=== PATIENT | male | born 1960 | race Caucasian/White ===

== ENCOUNTER → 2017-12-05 | Outpatient (CLI) | payer MEDICARE ==
--- NOTE | 2017-12-05 12:21 | RADIOLOGY REPORT (SQ) ---
EXAM DESCRIPTION: MRI CERVICAL SPINE WITHOUT COMPLETED DATE/TIME: 12/05/2017 9:23 am REASON FOR STUDY: CERVICALGIA (M54.2) M96.1 POSTLAMINECTOMY SYNDROME, NOT ELSEWHERE CLASSIFIED M54. 2 CERVICALGIA COMPARISON: None. TECHNIQUE: Sagittal and Axial imaging includes T1, T2, STIR and gradient echo sequences. LIMITATIONS: Motion. FINDINGS: ALIGNMENT: Reversal of the lordotic curve. Grade 1 anterolisthesis C4 relative to C3, C5 relative to C4. VERTEBRAE: Intact. BONE MARROW: Normal. No marrow replacement or reactive changes. DISCS: Desiccation multiple levels. HARDWARE: None in the spine. CORD AND BASE OF BRAIN: Normal in size and signal intensity. SOFT TISSUES: No soft tissue masses. C1-C2: No significant spinal stenosis. C2-C3: No significant spinal stenosis or exit foraminal stenosis. C3-C4: Mild -moderate spinal stenosis due disc osteophyte complex and malalignment. Severe neural fo raminal narrowing bilaterally. C4-C5: Mild spinal stenosis due to disc osteophyte complex and malalignment. Moderate neural foramin al narrowing bilaterally. C5-C6: No significant spinal stenosis or exit foraminal stenosis. C6-C7: No significant spinal stenosis or exit foraminal stenosis. C7-T1: No significant spinal stenosis or exit foraminal stenosis. UPPER THORACIC: Incompletely imaged. No significant spinal stenosis or exit foraminal stenosis. OTHER: No other significant finding. IMPRESSION: Mild-moderate spinal stenosis C3-4. Mild spinal stenosis C4-5. TECHNICAL DOCUMENTATION: JOB ID: [id number] [employer]- All Rights Reserved Reading location - IP/workstation name: [email or web address]
--- NOTE | 2017-12-05 13:21 | RADIOLOGY REPORT (SQ) ---
EXAM DESCRIPTION: MRI LUMBAR SPINE COMBO COMPLETED DATE/TIME: 12/05/2017 9:23 am REASON FOR STUDY: POSTLAMINECTOMY SYNDROME, NEC (M96.1), RADICULOPATHY, LUMBOSACRAL REGION (M M96.1 POSTLAMINECTOMY SYNDROME, NOT ELSEWHERE CLASSIFIED M54.2 CERVICALGIA COMPARISON: None. TECHNIQUE: Sagittal and Axial imaging includes T1, T1 post gadolinium, T2, STIR and gradient echo se quences. Coronal T2/HASTE imaging. CONTRAST TYPE AND DOSE: 15 mL Prohance. RENAL FUNCTION: GFR > 60. LIMITATIONS: Motion. FINDINGS: VISUALIZED UPPER ABDOMEN: Limited evaluation. No acute or suspicious findings suggested. SEGMENTATION: No transitional anatomy. The lowest well-developed disc space is labeled L5-S1. ALIGNMENT: Anatomic. VERTEBRAE: Intact. No fractures. BONE MARROW: Normal. No marrow replacement or reactive changes. DISC SIGNAL: Desiccation multiple levels. POSTERIOR ELEMENTS: See individual levels below. HARDWARE: Disc spacer L4-5. CORD AND CONUS: Normal in size and signal intensity. Conus at the appropriate level. SOFT TISSUES: No aortic aneurysm seen. No bulky retroperitoneal adenopathy or mass. No paraspinal mas s or fluid. L1-L2: No significant stenosis. L2-L3: Moderate spinal stenosis due to disc osteophyte complex. Lateral recess stenosis. Mild neura l foraminal narrowing bilaterally. L3-L4: Mild -moderate spinal stenosis due to disc osteophyte complex. Mild neural foraminal narrowin g bilaterally. L4-L5: Old right laminectomy. No significant spinal stenosis. L5-S1: Left paracentral annular fissure. No significant stenosis. Facet arthropathy. LOWER THORACIC: Incompletely imaged. No stenosis seen. SACRUM: Visualized upper sacrum intact. ENHANCEMENT: No abnormal enhancement. OTHER: No other significant findings. IMPRESSION: Spinal stenosis L2-3 and L3-4. TECHNICAL DOCUMENTATION: JOB ID: [id number] [employer]- All Rights Reserved Reading location - IP/workstation name: [email or web address]
== END ==
LOC: RAD 08:15
PROVIDERS: ATTEND Physician Assistant
DX: M96.1 Postlaminectomy syndrome, not elsewhere classified (principal); M54.2 Cervicalgia; M54.17 Radiculopathy, lumbosacral region; M48.061 Spinal stenosis, lumbar region without neurogenic claudication; M48.02 Spinal stenosis, cervical region
CPT/HCPCS: 82565; 72158; 72141; A9576

== ENCOUNTER 2018-11-22 09:28 | Day surgery (SDC) | payer MEDICARE, MEDICAID ==
[~2018-11-22 09:28] MED LIST: DIPHENHYDRAMINE HCL 50 MG/ML VIAL ONE; EPINEPHRINE INJ 1 MG/10 ML DISP.SYRIN ONE; FENTANYL CITRATE INJ/PF 100 MCG/2 ML AMPUL ONE; FLUMAZENIL INJ 0.5 MG/5 ML VIAL ONE; GLUCAGON,HUMAN RECOMB 1 MG INJ ONE; NALOXONE HCL INJ/PF 0.4 MG/1 ML SDV ONE; ONDANSETRON HCL INJ/PF 4 MG/2 ML SDV ONE
[2018-11-22] MEDS ORDERED: RINGERS SOLUTION,LACTATED 1,000 ML IV PRN (09:30)
[2018-11-22] MEDS ORDERED: ACETAMINOPHEN 325 MG TABLET PO PRN (09:31)
[2018-11-22] MEDS ORDERED: NA PHOS,M-B/NA PHOS,DI-BA (ADULT) 133 ML ENEMA PR ONE ×3 (09:37→10:00)
[2018-11-22] MEDS: MIDAZOLAM 2 MG/2 ML INJ ONE ×4 (10:13→10:37)
--- NOTE | 2018-11-22 11:33 | Operative Report ---
Operative Report DATE OF SURGERY: 11/22/18 PREOPERATIVE DIAGNOSIS: 1. Abdominal pain. 2. History of gastroesophageal re flux disease. 3. History of tubular adenoma descending colon POSTOPERATIVE DIAGNOSIS: Same. 1. Diffuse moderate gastritis. 2. Hiatal hernia. 3. Distal esophagitis with evolving stricture. 4. Mild duodenitis. 5. Multiple colonic polyps OPERATION: 1. Esophagogastroduodenoscopy. 2. Cold forceps biopsies of GE junction, gastric antrum, gastric body. 2. Total colonoscopy to cecum with photodocumentation. 3. Descending and sigmoid colon polypectomy x4 SURGEON: MANN CANELA ANESTHESIA: Moderate Sedation TISSUE REMOVED OR ALTERED: Cold forceps biopsy of the mucosa of the esophagus, stomach; multiple polyps of the colon COMPLICATIONS: None ESTIMATED BLOOD LOSS: Scant INTRAOPERATIVE FINDINGS: See below PROCEDURE: The patient was taken to the preop holding area to the main endoscopy suite on the fifth floor appropriate monitoring devices were attached, appropriate level of conscious sedation induced, and patient placed in a semirecumbent position, oral mouthpiece inserted. Surgical plan and surgical timeout were conducted. The flexible adult upper endoscope was advanced to the oropharynx, down the esophagus through the stomach and into the duodenum. This was well-tolerated by the patient. The first and second portions of the duodenum were visualized carefully. There was moderate duodenitis. No biopsies taken. No ulceration. The pylorus was examined carefully and no evidence of ulceration here, however the stomach was significant for moderate, diffuse gastritis, with erythema and streaking. 2 biopsies were taken 1 of the gastric antrum for JULI testing, and 1 of the body for histologic analysis. There is no evidence of tumor stricture bleeding or polyp. The scope was retroflexed in the stomach, good look at the GE junction obtained. There was a small to moderate sized hiatal hernia. The stomach was decompressed, the scope brought back into the esophagus. There was early, evolving narrowing of the GE junction which was photographed. There was no true stricture however. The Z line was at approximately 37 cm from the incisor. There was some irregularity. A biopsy was taken with a cold forceps device of the Z line. The scope was withdrawn through the rest the esophagus which was unremarkable. There is no evidence of varix tumor stricture or bleeding. Patient was repositioned for colonoscopy A rectal exam was performed. The posterior surface of the prostate gland was slightly enlarged. The flexible pediatric colonoscope was advanced to the anal rectal canal all the way to the cecum. This was a suboptimal bowel prep as there was a mild to moderate amount of residual green slurry stool in the right colon. However with vigorous irrigation and suctioning, we are able to clear the majority of this material. Anatomic landmarks identified confirming cecal intubation. The scope was withdrawn to light the colon checked the mucosa carefully. Again mucosa covered with liquid green stool in areas requiring significant irrigation and suctioning. There was no evidence of tumor stricture or bleeding. There was no evidence of diverticulosis. The descending colon from approximately 50 cm to 35 cm in the anal verge were 4 polyps. 3 polyps were small, 2 removed with the cold forceps device and the third removed with the hot snare device, medium strength. 2 polyps were retained for submission. There was sent as descending colon polyps. In the sigmoid colon approximately 35 cm from the anal verge was approximately 8 mm diameter pedunculated polyp, photographed, removed with a hot air device, medium strength. The specimen was sucked out through the patient's anal canal, and sent to pathology as sigmoid colon polyp. The colonoscope was reinserted into the anorectal canal, inspection of the polypectomy site revealed no evidence of bleeding. The remainder of the colonoscopy was unremarkable. The anal rectal canal was unremarkable. Scope was withdrawn to the patient's anus, he tolerated procedure well, and taken recovery room stable condition. Per surveillance guidelines, patient be appropriate candidate for follow-up colonoscopy in 3 years pending the results of the final path report.
--- NOTE | 2018-11-22 11:36 | Discharge Summary ---
Discharge Summary (SDC) - Discharge Final Diagnosis: Gastroesophageal reflux disease; hiatal hernia; diffuse gastritis; duodenitis; multiple colon polyps Date of Surgery: 11/22/18 Discharge Date: 11/22/18 Condition: Good Treatment or Instructions: [address] [address] POST ENDOSCOPY DISCHARGE INSTRUCTIONS 1. Diet: Start clear liquids that a regular diet as tolerated. 2. Resume all preoperative medications. All oral anticoagulants and aspirins can be resumed 24 hours after procedure. 3. If a polypectomy was performed some bleeding per rectum may occur. This should stop within 3 days. If not, please contact the office. 4. If you had a colonoscopy you may experience some bloating and delayed return of normal bowel function for several days, your regular bowel movement pattern should resume within a week. 5. Please contact [facility] at to make an appointment with Dr. Reyes for 1 to 3 weeks following procedure. 6. If you have any questions or concerns regarding your care,treatment plan or follow up, please contact our office. 7. Per clinical guidelines we recommend you undergo a repeat colonoscopy in three years. Referrals: JOSEPH JOYCE MD [Primary Care Provider] - Discharge Diet: As Tolerated Discharge Activity: Activity As Tolerated Home Care Assistance: None Needed Report the Following to Your Physician Immediately: Shortness of Breath, Increase in Pain, Fever over 101 Degrees
[2018-11-22 12:17] VITALS: BP 181/70
== END 2018-11-22 12:26 | disposition home or self-care (01) ==
LOC: END 09:28
PROVIDERS: ATTEND Surgery
DX: Z12.11 Encounter for screening for malignant neoplasm of colon (principal); D12.5 Benign neoplasm of sigmoid colon; D12.4 Benign neoplasm of descending colon; K29.50 Unspecified chronic gastritis without bleeding; K21.0 Gastro-esophageal reflux disease with esophagitis; K29.80 Duodenitis without bleeding; K44.9 Diaphragmatic hernia without obstruction or gangrene; Z86.010 Personal history of colon polyps; I73.9 Peripheral vascular disease, unspecified; E78.5 Hyperlipidemia, unspecified; E55.9 Vitamin D deficiency, unspecified; F17.200 Nicotine dependence, unspecified, uncomplicated; Z79.01 Long term (current) use of anticoagulants; Z79.82 Long term (current) use of aspirin; Z90.49 Acquired absence of other specified parts of digestive tract; Z83.79 Family history of other diseases of the digestive system
CPT/HCPCS: 43239; 45385; 88342 ×2; 88305 ×2; J2250; J3010; A9270; J0171; J1200; J1610; J2310; J2405; J3490